=== PATIENT | male | born 1965 | race Caucasian/White ===

== ENCOUNTER 2016-06-30 08:15 | Day surgery (SDC) | payer OTHER ==
[2016-06-15 12:49] VITALS: BMI 43.4
[~2016-06-30 08:15] MED LIST: LACTATED RINGERS 1,000 ML IV SCH
[2016-06-30] MEDS ORDERED: LIDOCAINE 1% 20 ML VIAL (10MG/ML) FOR IV START INTRADERMA ONE (08:43)
[2016-06-30 08:44] VITALS: TEMP 97.9
[2016-06-30] MEDS ORDERED: LIDOCAINE 1% INJ 10MG/ML (20 ML MDV) ONE (09:26)
[2016-06-30] MEDS ORDERED: PROPOFOL 10 MG/ML 20 ML VIAL IV ONE (09:26)
--- NOTE | 2016-06-30 09:33 | P.GSHP ---
History of Present Illness H&P Date: 06/30/16 Chief Complaint: Screening colonoscopy This a 50-year-old male referred from [facility]. Patient presents today for screening colonoscopy. He denies a significant GI complaints. - Constitutional Constitutional: Reports as per HPI Past Medical History Past Medical History: Asthma, Diabetes Mellitus, Hypertension, Sleep Apnea/CPAP/ BIPAP Additional Past Medical History / Comment(s): HEART SL ENLARGED. QUIT USING CPAP. History of Any Multi-Drug Resistant Organisms: None Reported Past Surgical History: Orthopedic Surgery Additional Past Surgical History / Comment(s): LT SHOULDER SURG. SINUS SURG. Past Anesthesia/Blood Transfusion Reactions: Previous Problems w/ Anesthesia Additional Past Anesthesia/Blood Transfusion Reaction / Comment(s): TAKES LONG TIME TO COME OUT OF ANESTHESIA. Smoking Status: Never smoker Past Alcohol Use History: None Reported Past Drug Use History: None Reported - Past Family History Father Family Medical History: Cancer Medications and Allergies Home Medications Medication Instructions Recorded Confirmed Type Cholecalciferol [Vitamin D3] 1,000 unit PO DAILY 06/15/16 06/30/16 History Dapagliflozin Propanediol [Farxiga] 10 mg PO DAILY 06/15/16 06/30/16 History Gabapentin 600 mg PO BID 06/15/16 06/30/16 History Glimepiride [Amaryl] 2 mg PO BID 06/15/16 06/30/16 History Hydrochlorothiazide (Unknown Dose) 1 tab PO DAILY 06/15/16 06/28/16 History Lisinopril [Zestril] 20 mg PO DAILY 06/15/16 06/30/16 History Multivitamins, Thera [Multivitamin 1 tab PO DAILY 06/15/16 06/28/16 History (formulary)] [place]-3 Fatty Acids/Fish Oil [Fish 1 each PO DAILY 06/15/16 06/28/16 History Oil 1,000 mg Softgel] Vitamin B-12 (Unknown Dose) 1 tab PO DAILY 06/15/16 06/30/16 History metFORMIN HCL [Glucophage] 1,000 mg PO BID 06/15/16 06/30/16 History Allergies Allergy/AdvReac Type Severity Reaction Status Date / Time aspirin Allergy Severe Swelling Verified 06/15/16 12:25 THROAT, EYES Surgical - Exam Vital Signs Temp Pulse Resp BP Pulse Ox 97.9 F 79 18 162/90 95 06/30/16 08:30 06/30/16 08:30 06/30/16 08:30 06/30/16 08:30 06/30/16 08:30 - General well developed, no distress - Eyes PERRL - ENT normal pinna - Neck no masses - Respiratory normal expansion - Cardiovascular Rhythm: regular - Abdomen Abdomen: soft, non tender Assessment and Plan Plan: We'll perform screening colonoscopy
--- NOTE | 2016-06-30 09:46 | P.OP ---
Date of Procedure: 06/30/16 Preoperative Diagnosis: Screening colonoscopy Postoperative Diagnosis: Sigmoid colon polyp Procedure(s) Performed: Colonoscopy Anesthesia: MAC Surgeon: Juanito Burns Pathology: other (Sigmoid colon polyp) Condition: stable Disposition: PACU Description of Procedure: Patient's placed on the endoscopy table in the lateral position. He received IV sedation. Digital rectal exam was performed which revealed no abnormalities. The prostate was symmetric without nodules. The flexible colonoscope was then placed patient anus passed throughout the entire colon. The ileocecal valve sutures. The cecum, ascending and transverse colon appeared normal. The descending colon appeared normal. Scope was then brought back and; into small polyp seen. These were removed with snare. Scope was then brought back the rectum and this appeared normal. Scope was withdrawn for patient.
[2016-06-30 10:01] VITALS: BP 127/82; PULSE 74; RESP 16
[2016-06-30 10:08] LABS: Glucose,Whole Blood 193 mg/dL (75-99)
== END 2016-06-30 10:30 | disposition home or self-care (01) ==
LOC: ORWHC2ENDO 08:15
PROVIDERS: ATTEND Surgery
DX: Z12.11 Encounter for screening for malignant neoplasm of colon (principal); D12.5 Benign neoplasm of sigmoid colon; J45.909 Unspecified asthma, uncomplicated; E11.9 Type 2 diabetes mellitus without complications; Z79.84 Long term (current) use of oral hypoglycemic drugs; G47.33 Obstructive sleep apnea (adult) (pediatric); Z79.899 Other long term (current) drug therapy; Z88.6 Allergy status to analgesic agent
CPT/HCPCS: 88305; 45385; J2001; J2704

== ENCOUNTER → 2016-09-27 | Outpatient (CLI) | payer OTHER ==
--- NOTE | 2016-09-27 22:32 | CT ---
EXAMINATION TYPE: CT foot RT wo con DATE OF EXAM: 09/27/2016 COMPARISON: NONE HISTORY: Right foot pain, type 2 diabetes with neuropathy, displaced fracture proximal phalanx right first toe all per order. CT DLP: 227 mGycm Automated exposure control for dose reduction was used. FINDINGS: Correlating with history there is acute comminuted displaced fracture involving distal 1/3-1/[address] proximal phalanx. There are 2 roughly 1 cm ossific fragments identified with fracture line showing intra-articular extension to interphalangeal joint. There is flexion in the first toe centered at fr acture noted. There is marked subchondral cystic change with some joint space loss involving metatarsals most prono unced laterally and articulations with the cuboid and lateral cuneiform. Mild spurring is present. There is pes planus deformity. There are moderate to large sized superior and inferior calcaneal spur s. There is some loss of normal sinus tarsi fat. There is moderate diffuse subcutaneous edema. There is mild to moderate spurring hindfoot to midfoot level near navicular articulation with the anterior calcaneus. IMPRESSION: THERE IS ACUTE DISPLACED FRACTURE THROUGH DISTAL ONE HALF OF THE FIRST PROXIMAL PHALANX WITH 2 OSSIFI C FRACTURE FRAGMENTS IDENTIFIED AND INTRA-ARTICULAR EXTENSION NOTED. OTHER FINDINGS NOTED ABOVE.
== END | disposition home or self-care (01) ==
LOC: RADCTMAIN 18:59
PROVIDERS: ATTEND Orthopaedic Surgery
DX: S92.411D Displaced fracture of proximal phalanx of right great toe, subsequent encounter for fracture with routine healing (principal); E11.40 Type 2 diabetes mellitus with diabetic neuropathy, unspecified

== ENCOUNTER 2016-10-06 13:06 | Day surgery (SDC) | payer OTHER ==
[2016-10-04 15:39] VITALS: BMI 43.4
[~2016-10-06 13:06] MED LIST changes: +DEXAMETHASONE SOD PHOSPHATE 10 MG/ML 1 ML VIAL IV ONE; +HYDROmorphone 1 MG/ML 1 ML SYRINGE IVP PRN; +MIDAZOLAM 2 MG/2 ML VIAL IV PRN; +ONDANSETRON 4 MG/2 ML VIAL IVP ONE; +SCOPOLAMINE 1.5MG/72HR PATCH TRANSDERM ONE; +ceFAZolin 3 GM in SODIUM CHLORIDE 0.9% 100 ML IVPB ONE
[2016-10-06 13:50] LABS: Glucose,Whole Blood 146 mg/dL (75-99)
[2016-10-06] MEDS ORDERED: LIDOCAINE 1% 20 ML VIAL (10MG/ML) FOR IV START INTRADERMA ONE (13:58)
[2016-10-06] MEDS ORDERED: SUCCINYLCHOLINE CHLORIDE VIAL 200 MG/10 ML VIAL IV ONE (14:44)
[2016-10-06] MEDS ORDERED: fentaNYL (PF) 50 MCG/ML 2 ML AMP ONE (14:44)
[2016-10-06] MEDS ORDERED: LIDOCAINE 1% INJ 10MG/ML (20 ML MDV) ONE (14:44)
[2016-10-06] MEDS ORDERED: PROPOFOL 10 MG/ML 20 ML VIAL IV ONE (14:44)
[2016-10-06] MEDS ORDERED: MIDAZOLAM 2 MG/2 ML VIAL ONE (14:44)
[2016-10-06] MEDS ORDERED: ceFAZolin 1,000 MG in SODIUM CHLORIDE 0.9% 1,000 ML IRRIGATION ONE (14:51)
[2016-10-06] MEDS ORDERED: LACTATED RINGERS 1,000 ML IV ONE (15:24)
[2016-10-06] MEDS ORDERED: HYDROmorphone 1 MG/ML 1 ML SYRINGE IVP PRN ×2 (15:49)
[2016-10-06] MEDS ORDERED: Acetaminophen-Codeine 300-30mg TAB PO PRN ×2 (15:49)
[2016-10-06 15:53] LABS: Glucose,Whole Blood 176 mg/dL (75-99)
--- NOTE | 2016-10-06 16:00 | P.OP ---
Date of Procedure: 10/06/16 Preoperative Diagnosis: 1. Closed, right displaced and angulated proximal phalanx fracture right big toe 2. Poorly controlled diabetes with peripheral neuropathy 3. Morbid obesity with BMI of 43.4 Postoperative Diagnosis: Same Procedure(s) Performed: Percutaneous reduction and pinning of right great toe proximal phalanx fracture Implants: Anesthesia: SHAISTA Surgeon: Matthew Locke Estimated Blood Loss (ml): 10 IV fluids (ml): 500 Pathology: none sent Condition: stable Disposition: PACU Indications for Procedure: The patient is a 50-year-old male with poorly controlled diabetes and peripheral neuropathy who was sent to my office by Dr. Hardwick with a right great toe fracture. Initially the patient had a very tenuous soft tissue envelope with multiple hemorrhagic fracture blisters but no open wounds. He was placed in a boot, started on daily Silvadene dressing changes, and started on Bactrim. The patient soft tissue envelope significantly improved. Clinically there was malalignment of the great toe with an obvious deformity. X-rays and CT scans showed a displaced proximal phalanx fracture. We discussed treatment options. Due to the patient's poorly controlled diabetes and poor soft tissue envelope I recommended against a formal open reduction and internal fixation to anatomically align the joint. Due to the amount of deformity I did recommend an attempt at closed reduction and pinning to allow the toe to heel and a straight position. We discussed potential risks and complication of surgery including but not limited to risk of anesthesia, risk of superficial infection, risk of deep infection, risk of delayed wound healing, risk of fracture nonunion , risk of fracture malunion, risk of pin site infection, risk of pin migration, risk of wound breakdown, risk of open ulceration, risk of need for amputation, risk of postoperative medical complications including DVT and fatal PE, and possibly . The patient understands these and risk of surgery due to his poorly controlled diabetes and neuropathy. Operative Findings: Description of Procedure: The patient was identified in preoperative holding and the correct right lower extremity was marked with my initials. I reviewed the consent form with the patient is . All of their questions were answered. The patient was then brought back to the operating room. A general anesthetic and preoperative an Intermedics were administered. Tourniquet was applied to the proximal aspect of the right thigh but was not inflated during the case. All bony prominences well-padded. The right leg was then prepped and draped in the standard sterile fashion. Prior to starting surgery timeout was performed identifying the correct patient, operative extremity, and procedure. I began by trying to gently close reduce the great toe. I was unable to visibly alter the position of the toe small stab incision was made over the dorsal aspect of the proximal phalanx directly over the fracture. Skin incision was made a 10 blade scalpel and a hemostat was used to bluntly dissect down to the level of fracture. A [place] elevator was placed under the fracture and attempted to lever the fracture fragments free. At this point I was able to straighten the toe out. 2 crossed 0.0625 K wires were placed from the tip of the toe across the fracture and into the first metatarsal head. Likely the toe appeared straight with no major deformity. M fluoroscopy was brought in to verify position of the fracture and pins. I was happy with the reduction and position of the pins. The pins were cut and capped. A single 3-0 nylon horizontal mattress stitch was placed in the stab incision. A sterile dressing consisting of Adaptic, 4 x 4, and an Frank wrap was applied. The patient was then awoken from his anesthetic transferred from the operating room table to the [facility] and brought to PACU having tolerated the procedure well. Plan: The patient is going to discharge home as an outpatient. He can heel weight-bear in a cam boot. He is to provide daily pin site care with Q-tips dipped in peroxide. He will continue taking Bactrim double strength twice a day was pins are in place. The was instructed on daily dressing changes. He'll follow-up in the office in 1 week for a wound check.
--- NOTE | 2016-10-06 16:03 | XR ---
EXAMINATION TYPE: XR toes RT DATE OF EXAM: 10/06/2016 COMPARISON: NONE HISTORY: Fluoroscopy after pinning of the great toe TECHNIQUE: 2 intraoperative fluoroscopic images FINDINGS/IMPRESSION: Two transcortical pins are seen through the proximal and distal phalanx of the f irst digit into the metatarsal and soft tissues on the provided frontal and lateral fluoroscopic save d images.
--- NOTE | 2016-10-06 16:05 | FL ---
Fluoroscopy HISTORY: Fracture 1 minute 8 seconds fluoroscopy time supplied to the referring clinician. 2 intraoperative C-arm imag es document the procedure. See dictated report from orthopedic surgery.
[2016-10-06 16:08] VITALS: TEMP 97.2
[2016-10-06 16:48] VITALS: RESP 18
[2016-10-06 17:15] VITALS: BP 125/73; PULSE 89
== END 2016-10-06 17:34 | disposition home or self-care (01) ==
LOC: OR 13:06
PROVIDERS: ATTEND Orthopaedic Surgery
DX: S92.411A Displaced fracture of proximal phalanx of right great toe, initial encounter for closed fracture (principal); W22.09XA Striking against other stationary object, initial encounter; I10 Essential (primary) hypertension; J45.909 Unspecified asthma, uncomplicated; E66.01 Morbid (severe) obesity due to excess calories; Z68.41 Body mass index [BMI] 40.0-44.9, adult; E11.42 Type 2 diabetes mellitus with diabetic polyneuropathy; Z79.84 Long term (current) use of oral hypoglycemic drugs; Z79.899 Other long term (current) drug therapy; Z87.891 Personal history of nicotine dependence; Z82.49 Family history of ischemic heart disease and other diseases of the circulatory system; Z83.3 Family history of diabetes mellitus; Z88.6 Allergy status to analgesic agent
CPT/HCPCS: 73660; 28496; C1713; J2250; J0330; J1100; J0690 ×2; J2405; J2001; J3010; J2704

== ENCOUNTER → 2018-03-06 | Outpatient (CLI) | payer BC ==
[2018-03-06 12:36] LABS: Blood Urea Nitrogen 14 mg/dL (9-20)
== END | disposition home or self-care (01) ==
LOC: LABWHC1 11:51
PROVIDERS: ATTEND Orthopaedic Surgery
DX: Z01.812 Encounter for preprocedural laboratory examination (principal); N28.9 Disorder of kidney and ureter, unspecified
CPT/HCPCS: 36415; 82565; 84520

== ENCOUNTER → 2018-11-02 | Outpatient (CLI) | payer BC ==
[2018-11-02 10:42] LABS: Basophils # (A) 0.1 k/uL (0-0.2); Basophils % (A) 1 %; Eosinophils # (A) 0.1 k/uL (0-0.7); Eosinophils % (A) 2 %; HCT 42.6 % (39.0-53.0); HGB 14.6 gm/dL (13.0-17.5); Lymphocytes # (A) 1.6 k/uL (1.0-4.8); Lymphocytes % (A) 28 %; MCH 31.7 pg (25.0-35.0); MCHC 34.3 g/dL (31.0-37.0); MCV 92.5 fL (80.0-100.0); Mean Platelet Volume 6.6; Monocytes # (A) 0.4 k/uL (0-1.0); Monocytes % (A) 6 %; Neutrophils # (A) 3.5 k/uL (1.3-7.7); Neutrophils % (A) 61 %; Platelet Count 231 k/uL (150-450); RDW 13.1 % (11.5-15.5); WBC 5.8 k/uL (3.8-10.6)
[2018-11-02 16:55] LABS: African American GFR (CKD) 113.4 (60.0-200.0); Albumin 4.4 g/dL (3.80-4.90); Anion Gap 7.4 mmol/L (4.00-12.00); BUN/Creat Ratio 15.56 Ratio (12.00-20.00); Calcium 9.3 mg/dL (8.7-10.3); Carbon Dioxide 27.6 mmol/L (21.6-31.8); Chol/HDL Ratio 5.48; Globulin 2.2 g/dL (1.6-3.3); Non-African American GFR(CKD) 97.9 (60.0-200.0); Potassium 4.6 mmol/L (3.5-5.5); Total Bilirubin 0.5 mg/dL (0.3-1.2); Total Protein 6.6 g/dL (6.2-8.2)
[2018-11-02 19:38] LABS: Hemoglobin A1C 7.8 % (4.0-6.0)
== END | disposition home or self-care (01) ==
LOC: LABWHC1 09:44
PROVIDERS: ATTEND Internal Medicine
DX: I10 Essential (primary) hypertension (principal); E11.9 Type 2 diabetes mellitus without complications; D64.9 Anemia, unspecified; R53.83 Other fatigue
CPT/HCPCS: 36415; 80053; 80061; 83036; 84443; 85025

== ENCOUNTER → 2023-04-19 | Outpatient (CLI) | payer BC ==
--- NOTE | 2023-04-19 16:00 | US ---
EXAMINATION TYPE: US venous doppler duplex LE LT DATE OF EXAM: 04/19/2023 3:48 PM COMPARISON: NONE CLINICAL INDICATION: Male, 57 years old with history of M79.662 pain lower left limb; pain left knee SIDE PERFORMED: Left TECHNIQUE: The lower extremity deep venous system is examined utilizing real time linear array sonog yomi with graded compression, doppler sonography and color-flow sonography. VESSELS IMAGED: Common Femoral Vein Deep Femoral Vein Greater Saphenous Vein * Femoral Vein Popliteal Vein Small Saphenous Vein * Proximal Calf Veins (* superficial vessels) Left Leg: Negative for DVT IMPRESSION: No evidence for DVT within the left lower extremity imaged from the groin to the upper calf.
== END | disposition home or self-care (01) ==
LOC: RADUSWWP 15:30
PROVIDERS: ATTEND Internal Medicine
DX: M79.662 Pain in left lower leg (principal); M25.562 Pain in left knee